=== PATIENT | female | born 1985 | race African-American/Black ===

== ENCOUNTER 2017-12-21 03:31 | Emergency (ER) | payer BC, MEDICAID ==
--- NOTE | 2017-12-21 04:12 | ER Document Report ---
ED GI/ - General Chief Complaint: Abdominal Pain Stated Complaint: ABDOMINAL PAIN Time Seen by Provider: 12/21/17 04:11 Mode of Arrival: Ambulatory Information source: Patient Notes: 31 yo non smoker, ETOH occ- some yesterday, female with epigastric pain that started before she went to bed at 10 pm, woke up due to increased pain at 0300 5 /5. No hx GERD. No abd. surgeries. Nausea now, not as bad as when she got here and vomited x 1 pain now2.5/5, diarrhea on thursday. . LMP: december 11. - Related Data Allergies/Adverse Reactions: amoxicillin [Amoxicillin] Allergy (Verified 09/23/11 16:17) Penicillins Allergy (Verified 09/23/11 16:17) vancomycin [Vancomycin] Allergy (Verified 09/23/11 16:17) Past Medical History - General Information source: Patient - Social History Smoking Status: Never Smoker Frequency of alcohol use: Occasional Drug Abuse: None Lives with: Family Family History: Reviewed & Not Pertinent - Medical History Medical History: Negative Past Surgical History: Reports: Hx Section - x1 - Immunizations Hx Diphtheria, Pertussis, Tetanus Vaccination: Yes - 2008 Hx Pneumococcal Vaccination: 09/07/10 Review of Systems - Review of Systems Constitutional: No symptoms reported EENT: No symptoms reported Cardiovascular: No symptoms reported Respiratory: No symptoms reported Gastrointestinal: See HPI Genitourinary: No symptoms reported Female Genitourinary: No symptoms reported Musculoskeletal: No symptoms reported Skin: No symptoms reported Hematologic/Lymphatic: No symptoms reported Neurological/Psychological: No symptoms reported Physical Exam - Vital signs Vitals: Temp Pulse Resp BP Pulse Ox 98.0 F 80 20 164/89 H 99 12/21/17 03:39 12/21/17 03:39 12/21/17 03:39 12/21/17 03:39 12/21/17 03:39 Interpretation: Normal - General General appearance: Appears well, Alert - HEENT Head: Normocephalic, Atraumatic Eyes: Normal Conjunctiva: Normal Pupils: PERRL Mucous membranes: Normal Pharynx: Normal Neck: Supple. No: Lymphadenopathy - Respiratory Respiratory status: No respiratory distress Chest status: Nontender Breath sounds: Normal Chest palpation: Normal - Cardiovascular Rhythm: Regular Heart sounds: Normal auscultation Murmur: No - Abdominal Inspection: Normal Distension: No distension Bowel sounds: Normal Tenderness: Tender - epigastric and RUQ Organomegaly: No organomegaly - Back Back: Normal, Nontender. No: CVA tenderness - Extremities General upper extremity: Normal inspection, Nontender, Normal color, Normal ROM , Normal temperature General lower extremity: Normal inspection, Nontender, Normal color, Normal ROM , Normal temperature, Normal weight bearing. No: Jaspal's sign - Neurological Neuro grossly intact: Yes Cognition: Normal Orientation: AAOx4 Lambert Coma Scale Eye Opening: Spontaneous Commerce Coma Scale Verbal: Oriented Commerce Coma Scale Motor: Obeys Commands Lambert Coma Scale Total: 15 Speech: Normal Motor strength normal: LUE, RUE, LLE, RLE Sensory: Normal - Psychological Associated symptoms: Normal affect, Normal mood - Skin Skin Temperature: Warm Skin Moisture: Dry Skin Color: Normal Skin irregularity: negative: Rash Course - Re-evaluation Re-evalutation: 12/21/17 06:07 Lab work is negative, gallbladder ultrasound is negative, patient feels better with IV fluid. No vomiting or diarrhea while in the emergency department. Feels like she can go home. - Vital Signs Vital signs: Temp Pulse Resp BP Pulse Ox 98.0 F 80 20 164/89 H 99 12/21/17 03:39 12/21/17 03:39 12/21/17 03:39 12/21/17 03:39 12/21/17 03:39 - Laboratory Result Diagrams: 12/21/17 04:27 12/21/17 04:27 Laboratory results interpreted by me: 12/21/17 12/21/17 12/21/17 04:27 04:27 05:32 Eosinophils % 7.6 H Absolute Eosinophils 0.7 H Potassium 3.5 L Carbon Dioxide 33 H Urine Blood SMALL H Discharge - Discharge Clinical Impression: upper abdominal pain, Vomiting and diarrhea Condition: Good Disposition: HOME, SELF-CARE Instructions: Evaluation of Upper Abdominal Pain ([facility]), Nausea or Vomiting, Nonspecific ([facility]), Diarrhea, Nonspecific ([facility]) Additional Instructions: Continue to hydrate at home Advance diet as tolerated Return to the emergency room if symptoms worsen Copy of lab work in gallbladder ultrasound given to you See your primary care doctor for follow-up Forms: Return to Work
[2017-12-21] MEDS ORDERED: ONDANSETRON 4 MG TAB.RAPDIS PO ONE (04:32)
[2017-12-21] MEDS ORDERED: NORMAL SALINE 1000 ML 1,000 ML IV ONE (04:33)
[2017-12-21 04:46] LABS: ABSOLUTE EOSINOPHILS # (AUTO) 0.7 10^3/uL (0.0-0.6); ABSOLUTE LYMPHOCYTES (AUTO) 3.6 10^3/uL (0.5-4.7); ABSOLUTE MONOCYTES (AUTO) 0.7 10^3/uL (0.1-1.4); ABSOLUTE NEUT (AUTO) 4.6 10^3/uL (1.7-8.2); ALANINE AMINOTRANSFERASE 36 U/L (9-52); ALBUMIN 3.7 g/dL (3.5-5.0); ALKALINE PHOSPHATASE 92 U/L (38-126); ANION GAP 9 (5-19); ASPARTATE AMINO TRANSFERASE 30 U/L (14-36); BASOPHILS % (AUTO) 0.5 % (0-2); BILIRUBIN,DIRECT 0.2 mg/dL (0.0-0.4); BILIRUBIN,TOTAL 0.2 mg/dL (0.2-1.3); BLOOD UREA NITROGEN 13 mg/dL (7-20); CALCIUM 8.9 mg/dL (8.4-10.2); CARBON DIOXIDE 33 mmol/L (22-30); CHLORIDE 103 mmol/L (98-107); EOSINOPHILS % (AUTO) 7.6 % (0-6); GLUCOSE 110 mg/dL (75-110); HEMATOCRIT 37.6 % (36.0-47.0); HEMOGLOBIN 13.4 g/dL (12.0-15.5); LYMPHOCYTES % (AUTO) 37.4 % (13-45); MEAN CORPUSCULAR HEMOGLOBIN 30.3 pg (27.0-33.4); MEAN CORPUSCULAR HGB CONC 35.7 g/dL (32.0-36.0); MEAN CORPUSCULAR VOLUME 85 fl (80-97); PLATELET COUNT 301 10^3/uL (150-450); POTASSIUM 3.5 mmol/L (3.6-5.0); RED BLOOD COUNT 4.43 10^6/uL (3.72-5.28); RED CELL DISTRIBUTION WIDTH 13.7 % (11.5-14.0); SEGMENTED NEUTROPHILS % (AUTO) 47.5 % (42-78); SODIUM 144.9 mmol/L (137-145); TOTAL CELLS COUNTED % (AUTO) 100 %; TOTAL PROTEIN 6.9 g/dL (6.3-8.2); WHITE BLOOD COUNT 9.6 10^3/uL (4.0-10.5)
--- NOTE | 2017-12-21 05:35 | RADIOLOGY REPORT (SQ) ---
EXAM DESCRIPTION: U/S ABDOMEN LIMITED W/O DOP CLINICAL HISTORY: 31 years, Female, epigastric , RUQ pain COMPARISON: None. LIMITATIONS: Bowel gas artifact. FINDINGS: Gallbladder appears within normal limits although partially obscured partially decompressed. Sonographic Nunes's test appears positive. Obscured pancreas and partially obscured aorta. Liver, 0.3 cm diameter common bile duct, biliary ductal system, 12 cm right kidney, and vasculature appear otherwise unremarkable. IMPRESSION: Limited exam. Gallbladder is partially obscured/decompressed. Nonspecific positive sonographic Nunes's test. Consider repeat, alternative, or surveillance investigation as clinically warranted.
[2017-12-21 05:56] LABS: APPEARANCE,URINE SLIGHTLY HAZY; BILIRUBIN,URINE NEGATIVE (NEGATIVE); COLOR,URINE YELLOW; GLUCOSE, URINE NEGATIVE (NEGATIVE); KETONES,URINE NEGATIVE (NEGATIVE); LEUKOCYTE ESTERASE,URINE NEGATIVE (NEGATIVE); NITRITE,URINE NEGATIVE (NEGATIVE); PROTEIN,URINE NEGATIVE (NEGATIVE); UROBILINOGEN,URINE NEGATIVE mg/dL (<2.0)
[2017-12-21 06:25] VITALS: BP 135/85
== END 2017-12-21 06:25 | disposition home or self-care (01) ==
LOC: ER 03:31
DX: R10.13 Epigastric pain (principal); R11.10 Vomiting, unspecified; R19.7 Diarrhea, unspecified; Z88.0 Allergy status to penicillin; Z88.3 Allergy status to other anti-infective agents
CPT/HCPCS: 99284; 96360; 36415; 87086; 83690; 84703; 85025; 80053; 81001; 76705; S0119; J7030